=== PATIENT | male | born 1975 | race Caucasian/White ===

== ENCOUNTER 2019-02-03 19:38 | Emergency (ER) | payer OTHER ==
[2019-02-03 20:03] LABS: SODIUM,NA 130 mEq/L (136-145)
[2019-02-03 20:07] LABS: CHLORIDE,CL 95 mEq/L (98-106)
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
[2019-02-03] MEDS ORDERED: Sodium Chloride 0.9% 1,000 ML ONE (21:47)
== END 2019-02-03 22:20 ==
LOC: CC.ED 19:38
DX: S12.591A Other nondisplaced fracture of sixth cervical vertebra, initial encounter for closed fracture (principal); S12.6 Fracture of seventh cervical vertebra; S80.12XA Contusion of left lower leg, initial encounter; S80.02XA Contusion of left knee, initial encounter; S00.81XA Abrasion of other part of head, initial encounter; M25.532 Pain in left wrist; M54.2 Cervicalgia; V86.69XA Passenger of other special all-terrain or other off-road motor vehicle injured in nontraffic accident, initial encounter
CPT/HCPCS: 36415; 70450; 71045; 72125; 72170; 73100; 80053; 80305; 81001; 82150; 83605; 85025; 85610; 99285; G0390; G0480; J7030